=== PATIENT | male | born 1945 | race Caucasian/White ===

== ENCOUNTER 2017-01-10 22:03 | Emergency (ER) | payer OTHER, BC ==
[~2017-01-10] VITALS: Ht 172.7 cm; Wt 100.1 kg
[~2017-01-10 22:03] MED LIST: ACTOS30 MG; ACTOS30 MG PO; ACYCLOVIR200 MG PO; ACYCLOVIR400 MG PO; ALDOMET500 MG PO; ALLOPURINOL300 MG PO; ANALGESIC325 M1 PO; ASPIR 8181 M1 PO; ASPIRIN E.C.81 M1 PO; ASPIRIN325 MG PO; AUGMENTIN875 MG PO; AVAPRO300 MG PO; Ambien PO; Ativan PO; BACTRIM PO; BACTRIM,SEPT1 TABLE1 PO; BIAXIN500 MG PO; BYSTOLIC10 MG PO; CATAPRES0.1 MG PO; CATAPRES0.2 MG PO; CATAPRES0.3 MG PO; CLONIDINE HCL0.1 MG PO; COLCHICINE,COL0.6 MG PO; COLCRYS0.6 MG PO; COUMADIN7.5 MG PO; COZAAR50 MG PO; Cozaar PO; DECADRON4 MG PO; DEXAMETHASONE4 MG PO; ECOTRIN325 MG PO; ENDOCET 7.5-501 EACH PO; Ecotrin PO; FLAGYL500 MG PO; FLEXERIL10 MG PO; FLUCONAZOLE100 M1 PO; FORTAMET500 M1; FUROSEMIDE20 MG PO; HUMALOG100 UNIT/2 SC; LANTUS; LANTUS 10100 UNITS/ SC; LANTUS 3 M100 UNITS/ SC; LANTUS 3 M100 UNITS1 SC; LANTUS 3 M100 UNITS1 SQ; LASIX20 MG PO; LASIX40 MG PO; LEVAQUIN250 MG PO; LEVAQUIN500 MG PO; LEVOFLOXACIN250 MG PO; LEVOTHYROXINE100 MCG PO; LITE COAT ASPI325 M1 PO; LOPRESSOR50 MG PO; Lasix PO; METOPROLOL TART50 MG PO; MICRO-K10 ME2 PO; MOTRIN800 MG PO; Micro-K,K-Tab,K-Dur, PO; NEURONTIN300 MG; NIFEDICAL XL60 MG PO; NIFEDIPINE ER60 M1 PO; NIFEDIPINE ER60 MG PO; NITROSTAT,NITR0.4 M1 SL; NOVOLOG 10100 UNITS/ SC; NOVOLOG PE100 UNITS/ SC; OMEGA-31000 M1 PO; ONDANSETRON HCL8 MG PO; OXYCODONE HCL10 MG PO; OXYCODONE HCL5 MG PO; OXYCONTIN40 MG PO; PANTOPRAZOLE SO40 MG PO; PAXIL20 MG PO; PAXIL30 MG PO; PERCOCET 5/31 TABLET PO; PLAVIX75 MG PO; POMALYST3 MG PO; PROCARDIA XL60 MG PO; PROTONIX40 MG PO; PriLOSEC PO; REVLIMID25 MG PO; SANDIMMUNE25 MG PO; SIMVASTATIN10 MG PO; SYNTHROID100 MCG PO; SYNTHROID125 MCG PO; SandIMMUNE PO; TEKTURNA300 MG PO; TEMAZEPAM15 M1; VYTORIN 10/11 TABLET PO; VYTORIN 10/21 TABLET PO; Vytorin 10/10 PO; ZOCOR10 MG PO; ZOMETA 4 M4 MG/100 M IV; ZOVIRAX200 MG PO; ZYLOPRIM100 MG PO; ZYLOPRIM300 MG PO; [UNRECOGNIZED DRUG - REMARK]
[2017-01-10 22:45] LABS: HEMATOCRIT 23.3 % (38.0-50.0); MCH 36.9 PG (29.0-34.0); MCHC 32.2 G/DL (30.0-36.0); MCV 114.8 FL (86-99); MEAN PLAT.VOLUME 9.9 uM^3 (9.0-12.4); NRBC (%) 0.4 /100 WBC (0-0); PLATELET COUNT 114 K/uL (156-360); RBC DIS.WIDTH-CV 14.1 % (11.8-14.6); RED BLOOD COUNT 2.03 M/uL (4.00-5.50); WHITE BLOOD COUNT 7.5 K/uL (4.1-10.2)
[2017-01-10 22:47] LABS: INTER. NORMALIZED RATIO 1.5; PROTHROMBIN TIME 17.3 SEC (10.2-12.9)
[2017-01-10 22:50] LABS: PTT 28.5 SEC (25-37)
[2017-01-10 22:55] LABS: CHLORIDE 105 mEq/L (99-109); POTASSIUM 5.6 mEq/L (3.7-5.4); SODIUM 135 mEq/L (136-147)
[2017-01-10 22:59] LABS: ANION GAP 16 MEQ/L (2-14); TOTAL BILIRUBIN 0.3 mg/dL (0.0-1.0)
[2017-01-10 23:01] LABS: ALKALINE PHOSPHATASE 59 IU/L (3-129); GFR ESTIMATE (CALCULATED) 24 mL/min/
[2017-01-10 23:02] LABS: UREA NITROGEN (BUN) 53 mg/dL (9-23)
[2017-01-10 23:06] LABS: TROP-I INTERPRETATION NEGATIVE; TROPONIN-I 0.03 ng/mL (0.0-0.30)
[2017-01-10 23:08] LABS: GLUCOSE 416 mg/dL (70-99)
[2017-01-10 23:14] LABS: EOSINOPHIL (%) 0 % (0-5); IMMATURE GRANULOCYTE (%) 0.5 % (0.0-0.7); INSTRUMENT ABS NEUTROPHIL CT 5.1 K/uL; MACROCYTES 3+; MONOCYTE (%) 5.6 % (3-12); MONOCYTE COUNT 0.4 K/uL (0-0.8); NEUTROPHIL (%) 67.3 % (45-76); NEUTROPHIL COUNT 5.1 K/uL (1.8-6.4)
[2017-01-11 01:35] LABS: POINT-OF-CARE METER ID UU13113702
[2017-01-11 02:00] VITALS: BP 154/95
[2017-01-11 03:18] LABS: SAMPLE HEMOLYSIS CHECK 0; SAMPLE ICTERIC CHECK 0; SAMPLE LIPEMIA CHECK 0
== END 2017-01-11 02:34 ==
LOC: EME → EDBD 22:03 → EME 22:03
PROVIDERS: Emergency Medicine
PROC: 5A09357 Assistance with Respiratory Ventilation, Less than 24 Consecutive Hours, Continuous Positive Airway Pressure (ICD-10-PCS; principal; 2017-01-10)
DX: I46.9 Cardiac arrest, cause unspecified (principal); R06.03 Acute respiratory distress; J18.9 Pneumonia, unspecified organism; C90.00 Multiple myeloma not having achieved remission; D64.9 Anemia, unspecified; I13.0 Hypertensive heart and chronic kidney disease with heart failure and stage 1 through stage 4 chronic kidney disease, or unspecified chronic kidney disease; I50.9 Heart failure, unspecified; N18.9 Chronic kidney disease, unspecified; E11.22 Type 2 diabetes mellitus with diabetic chronic kidney disease; Z79.4 Long term (current) use of insulin; Z66 Do not resuscitate; Z51.5 Encounter for palliative care; I25.2 Old myocardial infarction; Z95.5 Presence of coronary angioplasty implant and graft; F41.9 Anxiety disorder, unspecified; Z87.891 Personal history of nicotine dependence
CPT/HCPCS: 71010; 80053; 82010; 82948; 83880; 84484; 85025; 85610; 85730; 93005; 94002; 94003; 99281; 99285; J1940; J2060; J2270